=== PATIENT | female | born 1945 | race Caucasian/White ===

== ENCOUNTER 2016-05-23 12:30 | Emergency (ER) | payer MEDICARE ==
[~2016-05-23] VITALS: Ht 154.9 cm; Wt 59.1 kg
[~2016-05-23 12:30] MED LIST: ASPI-628 PO; CALC-27 PO; CALC1TAB99 PO; CRAN500C5 PO; HYDR25TA4 PO; KRIL1CAP10 PO; LISI-571 PO; MULT-36 PO
[2016-05-23 12:33] VITALS: BP 151/80; PULSE 88; RESP 20; O2SAT 99
--- NOTE | 2016-05-23 13:38 | ED.REPORT ---
HPI-Extremity Problem Lower Date of Service May 23, 2016 ED Provider: Doc,Ed MD History of Present Illness: fall off a stool today around 1130 at home. left lower leg pain. le guthrie is primary care. left hand pain and right elbow pain Nursing Notes Stated Complaint: GLF,LEFT LEG Chief Complaint: Multiple Trauma/Fall Nursing Notes Reviewed: Yes Allergies: Coded Allergies: Sulfa (Sulfonamide Antibiotics) (Unverified Allergy, Severe, THROAT SWELLING, 08/06/14) ciprofloxacin (Unverified Allergy, Severe, RASH, 08/06/14) Penicillins (Unverified Allergy, Unknown, UNKNOWN REACTION (CHILDHOOD), 08/06/14) cefuroxime (Unverified Allergy, Unknown, UNKNOWN, 08/06/14) codeine (Unverified Adverse Reaction, Severe, "LOST HER MIND", 08/06/14) Scheduled Aspirin (Aspir 81) 81 Mg Tablet. 81 MG PO DAILY Calcium & Magnesium Carbonate (Antacid Gelatin Caplet) 1 Each Tablet 1 EACH PO DAILY Calcium Carbonate/Vitamin D3 (Calcium 600 + Vit D 200 Tablet) 1 Each Tablet 1 EACH PO DAILY Cranberry Extract (Cranberry Concentrate) 500 Mg Capsule 500 MG PO DAILY Hydrochlorothiazide (Hydrochlorothiazide) 25 Mg Tablet 25 MG PO DAILY Krill Oil/Comins-3/Dha/Epa (Fish Oil with Krill Softgel) 1 Each Capsule.dr 1 EACH PO DAILY Lisinopril (Lisinopril) 5 Mg Tablet 5 MG PO DAILY Multivitamin (Daily Multiple Vitamin) 1 Each Tablet 1 EACH PO DAILY General Time Seen by MD: 13:37 Chief Complaint Leg injury left Hx Obtained From: Patient Onset Occurred: 1 - 4 hours ago Symptom Duration: Since onset Past Medical History Past Medical History Denies: Asthma, Diabetes mellitus Past Surgical History dog bite abscess on right hand Smoking History Never Smoker Social History Alcohol Use: Denies alcohol use Drug Use: Denies drug use Other Social History: Occupation no work or school 05/23/2016 Review of Systems Basic Review of Systems Eyes: Vision NL, No discharge ENT: Hearing NL, No pain, No nasal congestion, No pharyngeal pain Respiratory: No shortness of breath, No cough, No wheeze Cardiovascular: No chest pain, No dyspnea on exertion, No orthopnea, No parox noct dyspnea, No palpitations GI: No abdominal pain, No anorexia, No nausea, No vomiting : No dysuria, No frequency Hematologic: No bleeding, No bruising Endocrine: No cold intolerance, No heat intolerance, No weight gain, No weight loss Allergy / Immune: No allergy Psychiatric: Normal thought content Physical Exam Initial Vital Signs Vital Signs (First) Date Time Temp Pulse Resp B/P Pulse Ox O2 Delivery O2 Flow Rate FiO2 05/23/16 12:33 36.8 88 20 151/80 99 Room Air Initial VS: Reviewed, Vital signs normal General/Constitutional: Well-developed, Well-nourished Head / Eyes: Atraumatic, Normocephalic, PERRL ENT: Mucous membranes moist, Conjunctiva normal, No scleral icterus Neck: Supple, Non-tender, Full range of motion Respiratory: Breath sounds normal, Clear to auscultation, No respiratory distress Cardiovascular: Regular rate & rhythm, Heart sounds normal, Intact distal pulses Abdomen / GI: Soft, Non-tender, No guarding, No rebound, No distention Back: No CVA tenderness Lymphatic: No lymphadenopathy Upper Extremities: Vascular intact, Neuro intact, No swelling, No tenderness Skin: Warm, Dry, No cyanosis Neurologic: Alert, Oriented, Nonfocal Psychiatric: Mood/affect normal, Behavior normal, Normal thought content left lower leg has mild ecchymosis, skin is intact Ankle / Foot: Atraumatic, Inspection NL, Full range of motion, No swelling, No erythema General/Constitutional: Awake, Alert, No acute distress, Well appearing, Well developed, Well hydrated Respiratory / Chest: Atraumatic, Breath sounds NL, Breath sounds = bilat, No respiratory distress Cardiovascular: Heart rate NL, Regular rhythm, Heart sounds NL, No gallop Interpretation & Diagnostics X-Ray Interpretation Xray Interpretation: ones: No fractures or dislocations. No suspicious bony lesions. Soft tissues: There is localized subcutaneous edema superficial to the distal fibular shaft. No suspicious soft tissue calcifications or masses. IMPRESSION: No acute bony injuries of the left lower leg. Discharge & Departure Impression: Primary Impression: Contusion Encounter type: initial encounter Contusion area: lower leg Additional Impressions: Fall Encounter type: initial encounter Qualified Code: W19.XXXA - Unspecified fall, initial encounter Home accident Disposition: Home Patient Instructions: Contusions in Adults (ED), Fall Prevention for Older Adults (GEN) Additional Instructions: The x-ray of your leg, hand and elbow are all negative for any sign of fracture. Continue with ice 15 minutes on and 15 minutes off for 3 to 4 days. Can use tylenol or ibuprofen if needed. Follow with primary care as needed. I am sorry you fell! Referrals: Josette Guthrie (PCP) EDSupervising Provider for APC: Gus Vasquez DO copies to: Josette Guthrie Sue ARNP May 23, 2016 13:38
--- NOTE | 2016-05-23 14:35 | DRSVH ---
PROCEDURE: X-RAY LEFT HAND, MINIMUM THREE VIEWS ([id number]) INDICATIONS: 71 year-old female with left hand bruising after fall from chair. TECHNIQUE: 3 views of the hand(s) acquired. COMPARISON: None. FINDINGS: Bones: No fractures or dislocations. There is second and third distal interphalangeal joint degener ation. Carpal bones are normally aligned. No suspicious bony lesions. Soft tissues: No suspicious soft tissue calcifications. IMPRESSION: No acute bony injuries of the left hand. Dictated by: Ti Mccoy M.D. on 05/23/2016 at 14:33 Approved by: Ti Mccoy M.D. on 05/23/2016 at 14:33
--- NOTE | 2016-05-23 14:36 | DRSVH ---
PROCEDURE: X-RAY RIGHT ELBOW COMPLETE, MINIMUM THREE VIEWS ([id number]) INDICATIONS: 71 year-old female with right elbow pain after fall from chair. TECHNIQUE: 3 views of the elbow were acquired. COMPARISON: None. FINDINGS: Bones: No fractures or dislocations. No suspicious bony lesions. Soft tissues: No elbow joint effusion. No suspicious soft tissue calcifications. IMPRESSION: No acute bony injuries of the right elbow. Dictated by: Ti Mccoy M.D. on 05/23/2016 at 14:34 Approved by: Ti Mccoy M.D. on 05/23/2016 at 14:34
--- NOTE | 2016-05-23 14:37 | DRSVH ---
PROCEDURE: X-RAY LEFT TIBIA/FIBULA, TWO VIEWS ([id number]) INDICATIONS: 71 year-old female with left lower leg pain after fall. TECHNIQUE: 2 views of the tibia and fibula were acquired. COMPARISON: None. FINDINGS: Bones: No fractures or dislocations. No suspicious bony lesions. Soft tissues: There is localized subcutaneous edema superficial to the distal fibular shaft. No susp icious soft tissue calcifications or masses. IMPRESSION: No acute bony injuries of the left lower leg. Dictated by: Ti Mccoy M.D. on 05/23/2016 at 14:35 Approved by: Ti Mccoy M.D. on 05/23/2016 at 14:35
== END 2016-05-23 14:56 | disposition home or self-care (01) ==
LOC: SED 12:30
DX: S80.12XA Contusion of left lower leg, initial encounter (principal); W07.XXXA Fall from chair, initial encounter; Y93.89 Activity, other specified; Y92.010 Kitchen of single-family (private) house as the place of occurrence of the external cause; Y99.8 Other external cause status; M79.642 Pain in left hand; M25.522 Pain in left elbow; Z79.82 Long term (current) use of aspirin; Z88.0 Allergy status to penicillin; Z88.1 Allergy status to other antibiotic agents; Z88.2 Allergy status to sulfonamides; Z88.5 Allergy status to narcotic agent